=== PATIENT | female | born 1990 | race Hispanic/Latino ===

== ENCOUNTER 2019-07-20 19:14 | Outpatient (CLI) | payer OTHER ==
[~2019-07-20] VITALS: Ht 170.2 cm; Wt 113.4 kg
[2019-07-20] MEDS ORDERED: PRENTAB9 PO (19:51)
[2019-07-20 20:03] VITALS: BP 131/75
[2019-07-20 22:23] VITALS: BP 121/67
--- NOTE | 2019-07-21 08:19 | HPE ---
DATE OF ADMISSION: 07/20/2019 This lady is a 28-year-old 4, para 1, abortio 2, last menstrual period (LMP) of 10/23/2018, estimated date of confinement (EDC) 07/30/2019 at 38 and 2 weeks of gestation, came in with a history of decreased movement, and she is doing her blood pressure at home and said it was elevated. Also, she is dehydrated. Her risk factors are she has gestational hypertension in her previous , body mass index (BMI) of 33.8, and she is a GDMA1. PAST HISTORY: March 2018: 37 weeks, spontaneous vaginal delivery, induction of labor, gestational hypertension, 7 pound 6 ounce female. Had two spontaneous abortions. LABS: B positive, HIV negative, hepatitis negative, RPR negative, rubella immune. Varicella immune. Pap normal. Urine negative. Gonorrhea and chlamydia are negative. Her 1-hour glucose early was 184. Her initial 3-hour GTT was 79/159/104/36. Repeat of her GTT, her 3-hour fasting was 95, 1-hour 158, 2-hour 167 and 3-hour was 70. EXAMINATION: No distress. Symphysis fundus height is appropriate. Four quadrant bowel sounds. Category one strip. No vaginal bleeding or vaginal loss. Blood pressure 131/75, respirations 20, pulse 88, temperature is 97.6. Mucous membranes are dry. Urine is 1.020, pH 5, +1 ketones. Our plan of management is to hydrate her with a couple liters of fluid. Since she is ketone negative, blood pressures are appropriate for her, and no contractions, will discharge to follow up with her, undelivered, with her next appointment.
== END 2019-07-20 22:25 | disposition home or self-care (01) ==
LOC: M LDO 19:14
PROVIDERS: ATTEND Obstetrics & Gynecology
DX: O36.8130 Decreased fetal movements, third trimester, not applicable or unspecified (principal); O26.893 Other specified pregnancy related conditions, third trimester; R03.0 Elevated blood-pressure reading, without diagnosis of hypertension; O99.283 Endocrine, nutritional and metabolic diseases complicating pregnancy, third trimester; E86.0 Dehydration; Z3A.38 38 weeks gestation of pregnancy
CPT/HCPCS: 59025; G0378; G0463

== ENCOUNTER 2019-07-31 15:31 | Inpatient (IN) | payer OTHER ==
[2019-07-31] VITALS (7 sets, daily range): BP systolic 120–142; BP diastolic 66–84
[~2019-07-31] VITALS: Ht 170.2 cm; Wt 113.7 kg
[~2019-07-31 15:31] MED LIST: PRENTAB9 PO
[2019-07-31] MEDS ORDERED: ZANTAC PO (15:54)
[2019-07-31] MEDS ORDERED: ASPI81TA85 PO (15:59)
[2019-07-31 16:30] LABS: BASO % 0.4 % (0.0-1.0); EOS # 0.1 10^3/uL (0.0-0.5); EOS % 0.9 % (0.0-3.0); HEMATOCRIT 36.2 % (36.0-47.0); HEMOGLOBIN 11.7 g/dl (12.0-15.5); LYMPH # 1.7 10^3/uL (1.5-5.0); LYMPH % 18.6 % (24.0-44.0); MEAN CORPUSCULAR HEMOGLOBIN 27.5 pg (27.0-33.0); MEAN CORPUSCULAR HGB CONC 32.3 g/dl (32.0-36.5); MONO # 0.5 10^3/uL (0.0-0.8); MONO % 5.4 % (0.0-5.0); NEUTROPHILS # 6.7 10^3/uL (1.5-8.5); NEUTROPHILS % 73.9 % (36.0-66.0); PLATELET COUNT, AUTOMATED 241 10^3/uL (150-450); RED BLOOD COUNT 4.26 10^6/uL (4.00-5.40)
[2019-07-31 16:53] LABS: CREATININE,RANDOM URINE < 13.0 MG/DL; TOTAL PROTEIN,RANDOM URINE < 5.0 MG/DL (0.0-12.0)
[2019-07-31 16:54] LABS: ALT/SGPT 20 U/L (12-78); BILIRUBIN,TOTAL 0.1 MG/DL (0.2-1.0); CREATININE FOR GFR 0.73 MG/DL (0.55-1.30); GLOMERULAR FILTRATION RATE > 60.0 (>60); LDH LACTATE DEHYDROGENASE 181 U/L (84-246); URIC ACID 3.6 MG/DL (2.6-6.0)
[2019-07-31] MEDS: LR 1,000 ML IV SCH (18:31)
--- NOTE | 2019-07-31 18:53 | HPEPDOC ---
Obstetrical History & Physical General Date of Admission Jul 31, 2019 at 15:31 History of Present Illness 29yo at 40+1wks admitted to LND for induction of labor. Pt initially dx with GHTN based on mild range elevated BPs, but now has new dx of Pre-Eclampsia without severe features based on PC ratio 0.384 with admission labs. Pt denies MCCANN, visual disturbances, RUQ pain. Pt reports +FM, denies LOF/VB/CTX. Pt is GBS Negative, blood type B Positive. Pt's complicated by GDMA1, Obesity (BMI 33 pre-), excessive weight gain Chief Complaint: Induction of labor Information Provided By: Patient Care Care: Good Care Number of Visits: 10 Dating Final EDC: Jul 30, 2019 Final EDC for Daily Update: Jul 30, 2019 Antepartum Course Diagnos(e)s Obesity GDMA1 Excessive Weight Gain Height (inches): 67 Pre- weight (lbs.): 216 Admission Weight (lbs.): 245 Change in Weight (lbs.): 29 Past Medical History Past Obstetrical History : Past Obstetrical History: Multigravida (1: March 2018 - VAVD at 37wks, IOL for GHTN, traumatic delivery and NICU admission/transfer, seizures after delivery, pelvis tested to 7+lbs; #2/3: Uncomplicated SAB) Past Medical History Medical History Obesity Surgical History: Butler teeth Family History Significant Family History: No pertinent family hx Social 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 BREAST: . ABDOMEN: Gravid and non-tender to touch. FETUS: Is vertex by SVE; EFW 3800g HEART RATE: Regular rate and rhythm. LUNGS: Observed nonlabored breathing. EXTREMITIES: Mild BLE bailee, no clonus. Vital Signs/I&O Vital Signs Date Time Temp Pulse Resp B/P (MAP) Pulse Ox O2 Delivery O2 Flow Rate FiO2 07/31/19 18:37 84 120/73 (89) 07/31/19 18:36 98.2 07/31/19 15:58 18 Laboratory Data 24H LABS Laboratory Tests 2 07/31/19 16:02: Serology Scanned Report Hepatitis B Testing 07/31/19 16:16: Immature Granulocyte % (Auto) 0.8, Neutrophils (%) (Auto) 73.9H, Lymphocytes (%) (Auto) 18.6L, Monocytes (%) (Auto) 5.4H, Eosinophils (%) (Auto) 0.9, Basophils (%) (Auto) 0.4, Neutrophils # (Auto) 6.7, Lymphocytes # (Auto) 1.7, Monocytes # (Auto) 0.5, Eosinophils # (Auto) 0.1, Basophils # (Auto) 0.0, Nucleated Red Blood Cells % (auto) 0.0, Urine Random Creatinine < 13.0, Urine Random Total Protein < 5.0, Glomerular Filtration Rate > 60.0, Uric Acid 3.6, Total Bilirubin 0.1L, Aspartate Amino Transf (AST/SGOT) 17, Alanine Aminotransferase (ALT/SGPT) 20, Lactate Dehydrogenase 181 CBC/BMP Laboratory Tests 07/31/19 16:16 Pertinent Laboratoy Data Blood Type: B+ RBC Antibody Screen: Negative HIV: Negative Hepatitis B: Negative Rapid Plasma Reagin: Nonreactive Rubella: Immune Varicella: Immune Chlamydia/Gonorrhea: Negative Group B Streptococcus: Negative Anatomy Ultrasound Ultrasound Date: March 16, 2019 Placenta Location: Anterior Normal Anatomy: Yes Vaginal Examination Dilation: Fingertip (VE: FT/L/H ) Cervical Consistency: Firm Cervical Position: Posterior Presentation: Cephalic presentation Assessment Heart Rate (FHR): 120 Variability: Moderate Accelerations: Positive Decelerations: None Tocometer Contractions: No Assessment/Plan Assessment 29yo at 40+1wks by LMP admitted to LND for IOL d/t Pre-Eclampsia without severe features. Category I FHT, GBS Negative, B Positive Blood Type. BPs mild range and pt asymptomatic. Plan P: Admit to LND, consented for induction of labor methods and delivery. Pt declines Vacuum assisted delivery. PIV start, admission labs drawn PO and IV hydrate Pt may have clear liquids Start IOL with PO cytotec, 50mcg Protonix IV available for GERD Continue to monitor and reassess in 4 hours or sooner Anticipate Consult with OB as indicated TANVIR CAI CNM Jul 31, 2019 18:53
[2019-07-31] MEDS ORDERED: miSOPROStol 50 MCG 1/2 TAB (S0191) PO ONE ×2 (19:00→23:00)
[2019-07-31] MEDS ORDERED: PANTOPRAZOLE 40MG INJ (PROTONIX) (C9113) IV ONE (19:00)
[2019-08-01] VITALS (43 sets, daily range): BP systolic 99–166; BP diastolic 50–105
[2019-08-01] MEDS: LR 1,000 ML IV SCH ×4 (01:00→20:21)
[2019-08-01] MEDS ORDERED: miSOPROStol 50 MCG 1/2 TAB (S0191) PO ONE (07:30)
[2019-08-01] MEDS ORDERED: SLF 3 ML SYR IV PRN (07:45)
--- NOTE | 2019-08-01 08:10 | IPNPDOC ---
Text Note Date of Service The patient was seen on 08/01/19. NOTE OB Considerations: Obesity GDMA1 - Admission Glucose 84 Excessive wt gain - 29 lbs 29y/o @ 40+2 wks admitted for IOL for GHTN, conservatively diagnosed with pre-eclampsia without SF based on MS/CR Ratio of <5/<13 on admission. She denies MCCANN/visual changes/RUQ pain. VS: Reviewed. Normotensive to mild range BPs. PMH notable for the above. PSH of WTE. NKDA. Fam/Soc history unremarkable. PNL notable for B+, GBS negative. HIV/HepBSAg/RPR negative. Rubella/VZV immune. Admission Labs: 9.0>11.7/36.2<241 AST 17 ALT 20 Cr 0.73 Placenta Anterior, Pelvis proven to 7lbs, though VAVD with laceration/seizures following delivery. EFW 3800g. NST: 130, mod sherwin, +accels, no decels TOCO: quiet Labor course: Admit DCE FT/long/hi Cytotec (oral): 1930, 0008 DCE 0630 /long/hi 0830 Cytotec Buccal A/p: 29y/o @ 40+2 wks admitted for IOL for pre-eclampsia without SF, undergoing cervical ripening with Cat I tracing -Continuous monitoring -Continue to monitor BP with intervention for Severe range BP PRN -GBS negative, no prophylaxis indicated -Patient declines VAVD -Plan for third dose of Cytotec, repeat DCE in 4 hours, attempt cervical ripening balloon VS,Fishbone, I+O VS, Fishbone, I+O Laboratory Tests 07/31/19 16:16 Vital Signs Date Time Temp Pulse Resp B/P (MAP) Pulse Ox O2 Delivery O2 Flow Rate FiO2 08/01/19 06:04 76 99/55 (70) 08/01/19 01:09 97.6 07/31/19 15:58 18 I&O- Last 24 Hours up to 6 AM 08/01/19 06:00 Intake Total 1350 ml Balance 1350 ml Nereida Lomeli MD Aug 01, 2019 08:10
--- NOTE | 2019-08-01 10:22 | IPN ---
DATE: 07/31/2019 29-year-old, 4, para 1, at 41 weeks of gestation, induction of labor. Was originally diagnosed with gestational hypertension, midrange blood pressures, new diagnosis of preeclampsia without severe features. Serum protein creatinine ratio is 0.384. She had been given two doses of Cytotec with minimal effect and overnight we allowed her to sleep. She is not having increasing contractions. She had a category 1 strip intermittently as monitored every 4 hours. Her blood pressure 104/51. Other blood pressures 123/66, 128/72. She had one elevated at 135/105 at 1 o'clock in the morning. Her chemistry is essentially normal. Her CBC white count and platelets within normal limits. Her chemistry her uric acid 3.6 and as mentioned her protein creatinine ratio was elevated and based on that she was induced plus being at term +1. This morning we examined her. She is still very posterior, 1 cm, -3 station. Not a candidate yet for Quezada bulb induction. Therefore, we are going to allow her to eat and restart her Cytotec hopefully getting her cervix ripened up enough for a Quezada bulb and Pitocin. As mentioned a category one strip, safe to proceed, blood pressures are normal.
[2019-08-01] MEDS ORDERED: SLF 3 ML SYR IV SCH (14:00)
[2019-08-01] MEDS ORDERED: FENTANYL 2MCG/ML ROPIVACAINE 0.2% IN 0.9% NACL 100ML IVBAG As Ordered ONE (14:13)
[2019-08-01 14:33] LABS: HEMATOCRIT 36.7 % (36.0-47.0); MEAN CORPUSCULAR HEMOGLOBIN 27.9 pg (27.0-33.0); MEAN CORPUSCULAR HGB CONC 32.7 g/dl (32.0-36.5); MEAN CORPUSCULAR VOLUME 85.3 fl (80.0-96.0); PLATELET COUNT, AUTOMATED 230 10^3/uL (150-450); WHITE BLOOD COUNT 9.3 10^3/uL (4.0-10.0)
[2019-08-01] MEDS ORDERED: EPIDURAL COMMENT XX SCH (15:00)
[2019-08-01] MEDS ORDERED: ONDANSETRON 4MG/2ML VIAL (J2405) IV PRN (15:00)
[2019-08-01] MEDS ORDERED: diphenhydrAMINE INJ 50MG/ML VIAL (J1200) IV PRN (15:00)
[2019-08-01] MEDS ORDERED: REFRIGERATOR IV KEYS XX PRN (15:00)
[2019-08-01] MEDS ORDERED: EPIDURAL/PCA KEYS XX PRN (15:00)
[2019-08-01] MEDS ORDERED: NALOXONE INJ 0.4 MG/1 ML VIAL (J2310) IV PRN (15:00)
[2019-08-01] MEDS ORDERED: FENTANYL/ROPIVACAINE/NACL BAG 100 ML EPIDURAL SCH (15:00)
[2019-08-01] MEDS ORDERED: LACTATED RINGER'S 1000 ML IV PRN (15:00)
[2019-08-01] MEDS ORDERED: OXYTOCIN DRIP 30 UNITS in IV 1 EA IV SCH (17:00)
[2019-08-01] MEDS: ePHEDrine SULFATE 25 MG/5 ML(5MG/ML) SYRINGE IV PRN ×2 (17:25→17:30)
--- NOTE | 2019-08-01 18:36 | IPNPDOC ---
Text Note Date of Service The patient was seen on 08/01/19. NOTE OB Considerations: Obesity GDMA1 - Admission Glucose 84 Excessive wt gain - 29 lbs 29y/o @ 40+2 wks admitted for IOL for GHTN, conservatively diagnosed with pre-eclampsia without SF based on NE/CR Ratio of <5/<13 on admission. She denies MCCANN/visual changes/RUQ pain. VS: Reviewed. Single severe range BP, non sustained. Otherwise normotensive. PMH notable for the above. PSH of WTE. NKDA. Fam/Soc history unremarkable. PNL notable for B+, GBS negative. HIV/HepBSAg/RPR negative. Rubella/VZV immune. Admission Labs: 9.0>11.7/36.2<241 AST 17 ALT 20 Cr 0.73 Placenta Anterior, Pelvis proven to 7lbs, though VAVD with laceration/seizures following delivery. EFW 3800g. NST: 120, min sherwin, +accels, no decels TOCO: q2-3 minutes Labor course: Admit DCE FT/long/hi Cytotec (oral): 1930, 0008 DCE 0630 1/long/hi 0830 Cytotec Buccal DCE 1246 4/70/-2 DCE 1834 8/80/0 A/p: 29y/o @ 40+2 wks admitted for IOL for pre-eclampsia without SF, now in active labor with CatII tracing, overall reassuring -Continuous monitoring -Continue to monitor BP with intervention for Severe range BP PRN -GBS negative, no prophylaxis indicated -Patient declines VAVD -Plan repeat DCE in 1-2 hours with AROM if amenable VS,Fishbone, I+O VS, Fishbone, I+O Laboratory Tests 08/01/19 14:16 Vital Signs Date Time Temp Pulse Resp B/P (MAP) Pulse Ox O2 Delivery O2 Flow Rate FiO2 08/01/19 16:25 78 18 106/56 (73) 08/01/19 15:34 97.4 I&O- Last 24 Hours up to 6 AM 08/01/19 06:00 Intake Total 1350 ml Balance 1350 ml Nereida Lomeli MD Aug 01, 2019 18:36
[2019-08-01] MEDS ORDERED: MAALOX 30 ML SUSP *UDC PO ONE (19:00)
--- NOTE | 2019-08-01 21:05 | IPNPDOC ---
Text Note Date of Service The patient was seen on 08/01/19. NOTE OB Considerations: Obesity GDMA1 - Admission Glucose 84 Excessive wt gain - 29 lbs 29y/o @ 40+2 wks admitted for IOL for GHTN, conservatively diagnosed with pre-eclampsia without SF based on ID/CR Ratio of <5/<13 on admission. She denies MCCANN/visual changes/RUQ pain. VS: Reviewed. Single severe range BP, non sustained. Otherwise normotensive. NST: 120, min sherwin, +accels, no decels TOCO: q2-3 minutes Labor course: Admit DCE FT/long/hi Cytotec (oral): 1930, 0008 DCE 0630 1/long/hi 0830 Cytotec Buccal DCE 1246 4/70/-2 DCE 1834 8/80/0 DCE 2100 AL/100/+1 NST: 115, MIN TO MOD, no accels, early decels TOCO: q2 minutes A/p: 29y/o @ 40+2 wks admitted for IOL for pre-eclampsia without SF, now in active labor with CatII tracing, overall reassuring -Continuous monitoring -Continue to monitor BP with intervention for Severe range BP PRN -GBS negative, no prophylaxis indicated -Patient declines VAVD -Will continue to observe FHR tracing, if non reassuring or patient feels pressure, will begin pushing VS,Fishbone, I+O VS, Fishbone, I+O Laboratory Tests 08/01/19 14:16 Vital Signs Date Time Temp Pulse Resp B/P (MAP) Pulse Ox O2 Delivery O2 Flow Rate FiO2 08/01/19 20:16 97.4 86 18 148/70 (96) I&O- Last 24 Hours up to 6 AM 08/01/19 06:00 Intake Total 1350 ml Balance 1350 ml Nereida Lomeli MD Aug 01, 2019 21:05
[2019-08-01 22:48] LABS: CORD GAS ABE V -7.6; CORD GAS HCO3 V 19.4 MEQ/L; CORD GAS O2 SAT V 76.2 %; CORD GAS PCO2 V 44.6 mmHg; CORD GAS PH V 7.257 UNITS; CORD GAS PO2 V 36.7 mmHg; CORD GAS TCO2 V 20.8 MEQ/L
[2019-08-01] MEDS ORDERED: ACETAMINOPHEN 500 MG TAB PO PRN (23:00)
[2019-08-01] MEDS ORDERED: ACETAMINOPHEN TAB 650MG DOSE (2X325MG) PO PRN (23:00)
[2019-08-01] MEDS ORDERED: DOCUSATE SODIUM 100 MG CAP PO PRN (23:00)
[2019-08-01] MEDS ORDERED: RHOGAM 300 MCG (1500 IU) INJ (J2790) IM SCH (23:00)
[2019-08-01] MEDS ORDERED: MEASLES,MUMPS,RUBELLA VACCINE INJ (MMR-II) (90707) SC SCH (23:00)
[2019-08-01] MEDS ORDERED: IBUPROFEN 800 MG TAB PO PRN (23:00)
[2019-08-01] MEDS ORDERED: METHYLERGONOVINE MALEATE 0.2 MG TAB PO PRN (23:00)
[2019-08-01] MEDS ORDERED: DIBUCAINE 1% OINTMENT 30GM TOP PRN (23:00)
--- NOTE | 2019-08-01 23:11 | DNPDOC ---
[facility] Delivery Note Delivery Note DATE OF DELIVERY: 01Aug2019 PREDELIVERY DIAGNOSIS: 40+2 weeks' gestation and labor. POST DELIVERY DIAGNOSIS: Delivered. PROCEDURE: Spontaneous vaginal delivery. 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 Lomeli ANESTHESIA: Epidural ESTIMATED BLOOD LOSS: 150 mL. FINDINGS: 7 pound 14 ounce 3560 female , Score 7/9, no nuchal cord DELIVERY SUMMARY: Patient is a 29-year-old 4 now para 2-0-2-2 who was admitted to labor and delivery for IOL for pre-eclampsia without SF. Patient received Cytotec x3 doses and then Pitocin augmentation. She had SROM of clear fluid and progressed to C/C/+1. Under epidural anesthesia, patient started pushing with baseline 120 and moderate variability, but with prolonged decelerations to 80s with each push. Patient encouraged to push with every other contractions, although she was sometimes unable to tolerate pressure without pushing. Possibility of delivery was discussed with patient. With renewed maternal pushing effort, patient progressed to deliver OA, restituting ROT. The left anterior shoulder delivered with downward traction and left posterior shoulder with upward guidance. No nuchal cord noted. to maternal abdomen. Cord was clamped x2 and cut; venous gases obtained. Placenta delivered intact, 3vc, central insertion. Pitocin started per protocol. Systematic examination revealed an intact perineum. Sponge and needle count correct x2. Mother and infant stable when provider left the room. EBL 150cc. Nereida Lomeli MD Aug 01, 2019 23:11
[2019-08-02 00:30] VITALS: BP 142/69
[2019-08-02 06:00] VITALS: BP 137/82
--- NOTE | 2019-08-02 07:44 | IPNPDOC ---
Text Note Date of Service The patient was seen on 08/02/19. NOTE OB Considerations: GHTN 29-year-old 4 now para 2-0-2-2 PPD#1 s/p uncomplicated following IOL for GHTN. Delivery was uncomplicated with EBL 150cc. This morning, patient is doing well. Breast feeding, ambulating without lightheadedness. Lochia is diminishing. Tolerating regular diet and voiding without difficulty. Patient does note some reflux, reports maalox worked well last time. VS: Reviewed. Normotensive to mild range BP. Afebrile. Gen: alert and oriented Resp: non labored breathing CV: well perfused Abd: Soft, NT/ND. U-2 Ext: no edema, erythema or calf tenderness A/p: 29y/o recovering well on PPD#1 -Motrin and Tylenol for pain control -Encourage ambulation, hydration, breast feeding -Contraception: Desires Mirena IUD at 6 weeks , declines bridging -B Pos, Rubella immune -Maalox ordered for heartburn -Anticipate discharge on PPD#2 due to late timing of delivery VS,Fishbone, I+O VS, Fishbone, I+O Laboratory Tests 08/01/19 14:16 Vital Signs Date Time Temp Pulse Resp B/P (MAP) Pulse Ox O2 Delivery O2 Flow Rate FiO2 08/02/19 06:00 98.3 89 16 137/82 (100) 98 I&O- Last 24 Hours up to 6 AM 08/02/19 06:00 Intake Total 2430 ml Output Total 1550 ml Balance 880 ml Nereida Lomeli MD Aug 02, 2019 07:44
[2019-08-02] MEDS ORDERED: MAALOX 30 ML SUSP *UDC PO ONE (07:45)
[2019-08-02] MEDS: PRENATAL VITAMINS CHEWABLE TABLET PO SCH (09:48)
[2019-08-02] MEDS: IBUPROFEN 600 MG TAB PO PRN ×2 (09:50→19:52)
[2019-08-02 10:00] VITALS: BP 134/68
[2019-08-02] MEDS: SLF 3 ML SYR IV SCH ×2 (10:00→22:00)
[2019-08-02] MEDS ORDERED: SLF 3 ML SYR IV PRN (10:15)
[2019-08-02 18:17] VITALS: BP 142/81
[2019-08-02] MEDS ORDERED: OMEPRAZOLE 20 MG CAP PO ONE (20:00)
[2019-08-03] MEDS: IBUPROFEN 600 MG TAB PO PRN (04:55)
[2019-08-03 05:33] VITALS: BP 139/65
[2019-08-03] MEDS: SLF 3 ML SYR IV SCH (06:00)
--- NOTE | 2019-08-03 06:45 | IPNPDOC ---
Progress Note Date of Service: Aug 03, 2019 Day#: 2 Progress Note SUBJECT: 29-year-old 4 now para 2-0-2-2 PPD #2. Patient without efren rns today. She has been ambulating, voiding spontaneously without issue and tolerating regular diet. Breast feeding without issue. patient plans on mirena IUD for contraceptive. OBJECTIVE: VITAL SIGNS: Within normal limits, afebrile. Alert and oriented times three. Abdomen: Fundus firm at U-2. Soft, NTTP. le: no edema/erythema/tenderness A/P Patient is a 29 yo PPD #2, doing well. discharge instructions given. d/c home today. Le, DO VS, I&O, 24H, Fishbone Vital Signs/I&O Vital Signs Date Time Temp Pulse Resp B/P (MAP) Pulse Ox O2 Delivery O2 Flow Rate FiO2 08/03/19 05:33 97.4 79 16 139/65 (89) 98 Room Air MARC DURON DO Aug 03, 2019 06:45
--- NOTE | 2019-08-03 06:50 | OBDS ---
[facility] Obstetrical Discharge Sum. Obstetrical Discharge Summary VDRL: Non-Reactive Rh: Positive Rubella: Immune Infant Sex: Female Weight: pounds (7), ounces (14), grams (3560) Anesthesia: Regional Anesthesia A/P, Post Course List any complications Admission diagnosis: gravid @ 40wks GHTN Discharge diagnosis: spontaneous vaginal delivery Condition at Discharge: stable Discharge Instructions: Home Activity: as tolerated Diet: regular Medications: filled at [facility] Follow-up: 6wks Hospital course: Patient admitted at term for induction of labor for gestational hypertension. She progressed to delivery vaginally. course uncomplicated and she was discharged home on day #2. MARC DURON DO Aug 02, 2019 21:52
[2019-08-03 08:45] VITALS: BP 142/68
[2019-08-03] MEDS: PRENATAL VITAMINS CHEWABLE TABLET PO SCH (08:51)
[2019-08-03] MEDS ORDERED: OMEPRAZOLE 20 MG CAP PO SCH (09:00)
== END 2019-08-03 10:30 | disposition home or self-care (01) | DRG 807 ==
LOC: M LDI 15:31 → M OBS 08-01 23:52
PROVIDERS: ADMIT Registered Nurse Maternal Newborn; ATTEND Obstetrics & Gynecology
PROC: 3E0P7GC Introduction of Other Therapeutic Substance into Female Reproductive, Via Natural or Artificial Opening (ICD-10-PCS; 2019-07-31)
PROC: 10E0XZZ Delivery of Products of Conception, External Approach (ICD-10-PCS; principal; 2019-08-01)
DX: O14.04 Mild to moderate pre-eclampsia, complicating childbirth (principal); Z37.0 Single live birth; Z3A.40 40 weeks gestation of pregnancy; O48.0 Post-term pregnancy; O24.420 Gestational diabetes mellitus in childbirth, diet controlled; O99.214 Obesity complicating childbirth; E66.9 Obesity, unspecified; O76 Abnormality in fetal heart rate and rhythm complicating labor and delivery

== ENCOUNTER 2021-11-06 20:59 | Inpatient (IN) | payer OTHER ==
[~2021-11-06] VITALS: Ht 170.2 cm; Wt 124.7 kg
[~2021-11-06 20:59] MED LIST changes: +ASPI81TA86 PO; +ZANTAC PO
[2021-11-06] MEDS ORDERED: ACET325C5 PO (21:20)
[2021-11-06] MEDS ORDERED: ZOLO50TA PO (21:20)
[2021-11-06] MEDS ORDERED: TUMS750C5 PO (21:22)
[2021-11-06] MEDS ORDERED: IRON65TA2 PO (21:23)
[2021-11-06] MEDS ORDERED: VITA100T59 PO (21:23)
[2021-11-06] MEDS ORDERED: HOME MED LIST COMPLETE! XX SCH (21:25)
[2021-11-06 21:36] VITALS: BP 161/77
[2021-11-06 22:13] LABS: HEMATOCRIT 33.5 % (36.0-47.0); HEMOGLOBIN 10.9 g/dl (12.0-15.5); MEAN CORPUSCULAR HEMOGLOBIN 28.1 pg (27.0-33.0); MEAN CORPUSCULAR HGB CONC 32.5 g/dl (32.0-36.5); MEAN CORPUSCULAR VOLUME 86.3 fl (80.0-96.0); PLATELET COUNT, AUTOMATED 215 10^3/uL (150-450); RED BLOOD COUNT 3.88 10^6/uL (4.00-5.40); WHITE BLOOD COUNT 9.5 10^3/uL (4.0-10.0)
[2021-11-06] MEDS ORDERED: OXYTOCIN INJ 10 UNITS/ML VIAL (J2590) IV PRN (22:15)
[2021-11-06] MEDS ORDERED: METHYLERGONOVINE MALEATE 0.2 MG/ML VIAL (J2210) IM PRN (22:15)
[2021-11-06] MEDS ORDERED: LACTATED RINGER'S 1000 ML IV ONE (22:15)
[2021-11-06] MEDS ORDERED: OXYTOCIN DRIP 30 UNITS in IV 1 EA IV PRN (22:15)
[2021-11-06] MEDS ORDERED: FENTANYL 2MCG/ML ROPIVACAINE 0.2% IN 0.9% NACL 100ML IVBAG As Ordered ONE (22:39)
[2021-11-06] MEDS ORDERED: ePHEDrine SULFATE 25 MG/5 ML(5MG/ML) SYRINGE IV PRN (23:00)
[2021-11-06] MEDS ORDERED: FENTANYL/ROPIVACAINE/NACL BAG 100 ML EPIDURAL SCH (23:00)
[2021-11-06] MEDS ORDERED: ONDANSETRON 4MG/2ML VIAL IV PRN (23:00)
[2021-11-06] MEDS: LR 1,000 ML IV SCH (23:00)
[2021-11-06] MEDS ORDERED: REFRIGERATOR IV KEYS XX PRN (23:00)
[2021-11-06] MEDS ORDERED: diphenhydrAMINE 50MG/ML VIAL (J1200) IV PRN (23:00)
[2021-11-06] MEDS ORDERED: LACTATED RINGER'S 1000 ML IV PRN (23:00)
[2021-11-06] MEDS ORDERED: EPIDURAL/PCA KEYS XX PRN (23:00)
[2021-11-06] MEDS ORDERED: EPIDURAL COMMENT XX SCH (23:00)
[2021-11-06] MEDS ORDERED: NALOXONE INJ 0.4MG/1ML VIAL (J2310 PER 1MG) IV PRN (23:00)
[2021-11-06 23:03] VITALS: BP 178/86
[2021-11-06 23:13] VITALS: BP 180/74
[2021-11-06 23:17] VITALS: BP 164/85
[2021-11-06] MEDS ORDERED: OXYTOCIN 30 UNITS IN 0.9% NaCl 500ML IV BAG (J2590) As Ordered ONE (23:19)
[2021-11-06 23:26] VITALS: BP 154/79
[2021-11-06 23:53] VITALS: BP 136/64
[2021-11-07 00:24] VITALS: BP 148/69
[2021-11-07 00:54] VITALS: BP 112/58
[2021-11-07 02:25] LABS: CORD GAS ABE V -4.7; CORD GAS HCO3 V 22.5 MEQ/L; CORD GAS O2 SAT V 61.6 %; CORD GAS PCO2 V 49.3 mmHg; CORD GAS PH V 7.277 UNITS; CORD GAS PO2 V 26.3 mmHg; CORD GAS SBC V 19.7 MEQ/L
[2021-11-07 02:32] LABS: CORD GAS ABE A -9.2; CORD GAS HCO3 A 22.4 MEQ/L; CORD GAS O2 SAT A 20.8 %; CORD GAS PCO2 A 76.5 mmHg; CORD GAS PH A 7.084 UNITS; CORD GAS PO2 A 15.8 mmHg; CORD GAS SBC A 15.6 MEQ/L; CORD GAS TCO2 A 24.7 MEQ/L
[2021-11-07] MEDS ORDERED: MEASLES,MUMPS,RUBELLA VACCINE INJ (MMR-II) (90707) SC SCH (02:55)
[2021-11-07] MEDS: LR 1,000 ML IV SCH ×6 (02:55→22:15)
[2021-11-07] MEDS ORDERED: ACETAMINOPHEN TAB 650MG DOSE (2X325MG) PO PRN (02:55)
[2021-11-07] MEDS ORDERED: RHOGAM 300 MCG (1500 IU) INJ (J2790) IM SCH (02:55)
[2021-11-07] MEDS ORDERED: DIBUCAINE 1% OINTMENT 30GM TOP PRN (02:55)
[2021-11-07] MEDS ORDERED: METHYLERGONOVINE MALEATE 0.2 MG TAB PO PRN (02:55)
[2021-11-07] MEDS ORDERED: ANUSOL HC CREAM 30GM TOP PRN (02:55)
[2021-11-07] MEDS ORDERED: DOCUSATE SODIUM 100MG CAPSULE PO PRN (02:55)
[2021-11-07] MEDS ORDERED: MOM 30ML SUSPENSION UDC PO PRN (02:55)
[2021-11-07] MEDS ORDERED: OXYTOCIN INJ 10 UNITS/ML VIAL (J2590) IV ONE (02:55)
[2021-11-07] MEDS ORDERED: OXYTOCIN DRIP 30 UNITS in IV 1 EA IV ONE (02:55)
[2021-11-07 06:00] VITALS: BP 136/73
[2021-11-07] MEDS: PRENATAL VITAMINS CHEWABLE TABLET PO SCH (08:40)
[2021-11-07] MEDS: ACETAMINOPHEN 500 MG TAB PO PRN (08:41)
[2021-11-07] MEDS: IBUPROFEN 600MG TAB PO PRN ×2 (16:08→22:19)
[2021-11-07 18:00] VITALS: BP 123/59
[2021-11-08] MEDS: LR 1,000 ML IV SCH ×2 (02:55→06:15)
[2021-11-08 06:00] VITALS: BP 122/61
[2021-11-08] MEDS: ACETAMINOPHEN 500 MG TAB PO PRN (06:16)
[2021-11-08] MEDS: PRENATAL VITAMINS CHEWABLE TABLET PO SCH (08:19)
[2021-11-08] MEDS ORDERED: INFLUENZA QUADRIVALENT PF VACCINE 0.5ML SYRINGE IM ONE (09:00)
[2021-11-08] MEDS ORDERED: BOOSTRIX/ADACEL VACCINE (DIPHTH/PERTUSS/ACELL/TETANUS) 0.5ML SYR IM ONE (09:00)
[2021-11-08 12:08] LABS: HEMATOCRIT 31.7 % (36.0-47.0); MEAN CORPUSCULAR HEMOGLOBIN 28.2 pg (27.0-33.0); MEAN CORPUSCULAR HGB CONC 31.5 g/dl (32.0-36.5); MEAN CORPUSCULAR VOLUME 89.3 fl (80.0-96.0); PLATELET COUNT, AUTOMATED 174 10^3/uL (150-450); RED BLOOD COUNT 3.55 10^6/uL (4.00-5.40); WHITE BLOOD COUNT 6.5 10^3/uL (4.0-10.0)
[2021-11-08] MEDS ORDERED: ONDANSETRON 4MG/2ML VIAL IV PRN (23:00)
[2021-11-08] MEDS ORDERED: NALOXONE INJ 0.4MG/1ML VIAL (J2310 PER 1MG) IV PRN (23:00)
[2021-11-08] MEDS ORDERED: diphenhydrAMINE 50MG/ML VIAL (J1200) IV PRN (23:00)
[2021-11-08] MEDS ORDERED: ePHEDrine SULFATE 25 MG/5 ML(5MG/ML) SYRINGE IV PRN (23:00)
[2021-11-08] MEDS ORDERED: EPIDURAL COMMENT XX SCH (23:00)
[2021-11-08] MEDS ORDERED: EPIDURAL/PCA KEYS XX PRN (23:00)
[2021-11-08] MEDS ORDERED: FENTANYL/ROPIVACAINE/NACL BAG 100 ML EPIDURAL SCH (23:00)
[2021-11-08] MEDS ORDERED: LACTATED RINGER'S 1000 ML IV PRN (23:00)
[2021-11-08] MEDS ORDERED: REFRIGERATOR IV KEYS XX PRN (23:00)
== END 2021-11-08 13:10 | disposition home or self-care (01) | DRG 807 ==
LOC: M LDO 20:59 → M LDI 22:07 → M OBS 11-07 05:24
PROVIDERS: ADMIT Obstetrics & Gynecology; ATTEND Obstetrics & Gynecology
PROC: 10E0XZZ Delivery of Products of Conception, External Approach (ICD-10-PCS; principal; 2021-11-08)
PROC: 10907ZC Drainage of Amniotic Fluid, Therapeutic from Products of Conception, Via Natural or Artificial Opening (ICD-10-PCS; 2021-11-08)
DX: O69.1XX0 Labor and delivery complicated by cord around neck, with compression, not applicable or unspecified (principal); Z37.0 Single live birth; Z3A.39 39 weeks gestation of pregnancy; O77.0 Labor and delivery complicated by meconium in amniotic fluid

== ENCOUNTER → 2022-03-29 | Outpatient (CLI) | payer OTHER ==
[~2022-03-29] MED LIST changes: +ACET325C5 PO; +IRON65TA2 PO; +ISOVUE-300 61% 50ML VIAL As Ordered ONE; +LIDOCAINE 1% MDV 20ML VIAL As Ordered ONE; +TRIAMCINOLONE ACETONIDE SUSP 40 MG/ML VIAL (J3301) As Ordered ONE; +TUMS750C5 PO; +VITA100T59 PO; +ZOLO50TA PO
== END ==
LOC: M RADPRO 11:09
PROVIDERS: ATTEND Physician Assistant Surgical
DX: S73.121A Ischiocapsular ligament sprain of right hip, initial encounter (principal); S73.122A Ischiocapsular ligament sprain of left hip, initial encounter; X58.XXXA Exposure to other specified factors, initial encounter; Y92.9 Unspecified place or not applicable
CPT/HCPCS: 20610; 76000; J3301; Q9967

== ENCOUNTER → 2022-04-09 | Outpatient (CLI) | payer OTHER | LOC: M RADPRO 12:31 | PROVIDERS: ATTEND Physician Assistant Surgical | DX: S73.122A Ischiocapsular ligament sprain of left hip, initial encounter (principal); X58.XXXA Exposure to other specified factors, initial encounter; Y92.9 Unspecified place or not applicable | CPT/HCPCS: 20610; 76000; J3301; Q9967 ==

== ENCOUNTER → 2023-09-27 | Outpatient (CLI) | payer OTHER ==
[~2023-09-27] MED LIST changes: -ISOVUE-300 61% 50ML VIAL As Ordered ONE; -LIDOCAINE 1% MDV 20ML VIAL As Ordered ONE; -TRIAMCINOLONE ACETONIDE SUSP 40 MG/ML VIAL (J3301) As Ordered ONE
== END ==
LOC: M PLAIMG 14:03
PROVIDERS: ATTEND Nurse Practitioner Family
DX: J32.9 Chronic sinusitis, unspecified (principal); M79.671 Pain in right foot

== ENCOUNTER → 2024-11-02 | Outpatient (REF) | payer OTHER ==
[2024-11-02 14:08] LABS: BASO % 0.7 % (0.0-1.0); EOS # 0.2 10^3/uL (0.0-0.5); EOS % 2.9 % (0.0-3.0); HEMATOCRIT 42.6 % (36.0-47.0); HEMOGLOBIN 13.6 g/dl (12.0-15.5); LYMPH # 2.1 10^3/uL (1.5-5.0); MEAN CORPUSCULAR HEMOGLOBIN 27.7 pg (27.0-33.0); MEAN CORPUSCULAR HGB CONC 31.9 g/dl (32.0-36.5); MEAN CORPUSCULAR VOLUME 86.8 fl (80.0-96.0); MONO # 0.5 10^3/uL (0.0-0.8); MONO % 8.4 % (2.0-8.0); NEUTROPHILS % 51.8 % (36.0-66.0); PLATELET COUNT, AUTOMATED 276 10^3/uL (150-450); RED BLOOD COUNT 4.91 10^6/uL (4.00-5.40); WHITE BLOOD COUNT 5.8 10^3/uL (4.0-10.0)
[2024-11-02 14:21] LABS: TOTAL IRON BINDING CAPACITY 310 UG/DL (250-425)
[2024-11-02 14:22] LABS: ALKALINE PHOSPHATASE 89 U/L (35-104); ALT/SGPT 46 U/L (7.0-40); AST/SGOT 26 U/L (<34); BILIRUBIN,TOTAL 0.4 MG/DL (0.3-1.2); BLOOD UREA NITROGEN 27 MG/DL (9-23); CALCIUM LEVEL 10.2 MG/DL (8.5-10.1); CARBON DIOXIDE LEVEL 28 MMOL/L (20-31); CHLORIDE LEVEL 106 MMOL/L (98-107); CHOLESTEROL LEVEL 168 MG/DL (<200); CHOLESTEROL RISK RATIO 3.34 (<5); CREATININE FOR GFR 0.92 MG/DL (0.55-1.30); GLOMERULAR FILTRATION RATE > 60.0 (>60); GLUCOSE, FASTING 78 MG/DL (60-100); HDL CHOLESTEROL 50.2 MG/DL (>40); IRON (FE) 91 UG/DL (50-170); NON-HDL-C 117.8 MG/DL; PERCENT SATURATION 29.4 % (13.2-45.0); POTASSIUM SERUM 4.5 MMOL/L (3.5-5.1); SODIUM LEVEL 142 MMOL/L (136-145); THYROID STIMULATING HORMONE 1.982 uIU/ML (0.55-4.78); TOTAL PROTEIN 7.7 G/DL (5.7-8.2); TRIGLYCERIDES LEVEL 74 MG/DL (<150)
[2024-11-02 14:23] LABS: FERRITIN 40.7 NG/ML (7.3-270.7); TOTAL 25(OH) VITAMIN D 51.3 NG/ML (20.0-100.0)
[2024-11-02 14:24] LABS: VITAMIN B12 LEVEL 841 PG/ML (211-911)
[2024-11-02 14:36] LABS: HEMOGLOBIN A1c 4.9 % (4.0-6.0)
[2024-11-02 14:54] LABS: HIV 1&2 SCREEN NEGATIVE (NEGATIVE)
[2024-11-02 15:02] LABS: HEPATITIS C VIRUS ABY INDEX < 0.02 INDEX (<0.8)
[2024-11-02 15:07] LABS: FOLATE 15.3 NG/ML (>5.4)
== END ==
LOC: M LAB REF 12:22
PROVIDERS: ATTEND Physician Assistant
DX: Z11.9 Encounter for screening for infectious and parasitic diseases, unspecified (principal); R00.2 Palpitations; E55.9 Vitamin D deficiency, unspecified; D64.9 Anemia, unspecified; E66.9 Obesity, unspecified